=== PATIENT | male | born 1955 | race Hispanic/Latino ===

== ENCOUNTER 2024-02-29 10:39 | Day surgery (SDC) | payer BC ==
[~2024-02-29] VITALS: Ht 160 cm; Wt 79.4 kg
[~2024-02-29 10:39] MED LIST: LOSA50TA64 PO; PRAV20TA4 PO
[2024-02-29 11:00] VITALS: BP 153/80; PULSE 60; RESP 15
[2024-02-29] MEDS: 0.9%NACL 1000ML 1,000 ML IV ONE (11:32)
[2024-02-29] MEDS ORDERED: PROPOFOL 10 MG/ML 20ML VIAL IV ONE (12:21)
== END 2024-02-29 13:14 ==
LOC: ENDO 10:39 → DAH 10:39 → ENDO 13:14
PROVIDERS: ATTEND Internal Medicine Gastroenterology
DX: R19.5 Other fecal abnormalities (principal); K63.5 Polyp of colon; I10 Essential (primary) hypertension; E66.9 Obesity, unspecified; E78.00 Pure hypercholesterolemia, unspecified; Z79.899 Other long term (current) drug therapy; Z79.01 Long term (current) use of anticoagulants; Z86.010 Personal history of colon polyps; Z98.890 Other specified postprocedural states; Z68.32 Body mass index [BMI] 32.0-32.9, adult; Z72.89 Other problems related to lifestyle
CPT/HCPCS: 45380; 88305; J7030; J2704; A4620; A4215 ×2; A4223; A4222; A4221; A4663; A4606; J3490